=== PATIENT | male | born 1945 | race Caucasian/White ===

== ENCOUNTER 2018-08-15 05:51 | Day surgery (SDC) | payer MEDICARE, BC ==
[2018-08-14 12:16] LABS: BASOPHILS # (AUTO) 0.1 X10'3 (0-0.2); BASOPHILS % (AUTO) 0.8 % (0-1); EOSINOPHILS # (AUTO) 0.7 X10'3 (0-0.9); EOSINOPHILS % (AUTO) 10.6 % (0-6); HEMATOCRIT 43.9 % (42.0-52.0); HEMOGLOBIN 14.7 g/dl (14.0-17.9); LYMPHOCYTES % (AUTO) 15.6 % (21-51); MEAN CORPUSCULAR HGB CONC 33.5 g/dL (33.0-36.5); MEAN CORPUSCULAR VOLUME 92.5 FL (78-98); MEAN PLATELET VOLUME 9.2 FL (7.4-10.4); MONOCYTES # (AUTO) 0.4 X10'3 (0-0.9); MONOCYTES % (AUTO) 5.9 % (2-12); NEUTROPHILS # (AUTO) 4.1 X10'3 (1.8-7.7); NEUTROPHILS % (AUTO) 67.1 % (42-75); PLATELET COUNT 187 X10'3 (140-440); RED BLOOD COUNT 4.75 X10'6 (4.70-6.10); RED CELL DISTRIBUTION WIDTH 14.4 % (11.5-14.5); WHITE BLOOD COUNT 6.1 X10'3 (4.5-11.0)
[2018-08-14 12:23] LABS: ALBUMIN 3.3 G/DL (3.4-5.0); ANION GAP 8 (8-16); BLOOD UREA NITROGEN 20 MG/DL (7-18); BUN/CREATININE RATIO 21.3 (5.4-32.0); CALCIUM 9.2 MG/DL (8.5-10.1); CHLORIDE 109 MMOL/L (99-107); CREATININE 0.94 MG/DL (0.60-1.10); GLUCOSE 104 MG/DL (70-104); POTASSIUM 4.2 MMOL/L (3.5-5.1); SODIUM 140 MMOL/L (135-145); TOTAL CARBON DIOXIDE 23.5 MMOL/L (24-32); eGFR 79 ML/MIN
[2018-08-14 12:24] LABS: INR 1.1 INR; PROTHROMBIN TIME 10.7 SECONDS (9.0-12.0)
[2018-08-15] VITALS (15 sets, daily range): BP systolic 98–136; BP diastolic 59–94
[~2018-08-15] VITALS: Ht 188 cm; Wt 101.5 kg
[2018-08-15] MEDS ORDERED: MIDAZolam 5mg/ml 2ml vial IV ONE (06:10)
[2018-08-15] MEDS ORDERED: amiodarone in dextrose, iso-osm 150mg/100ml bag IV ONE (06:10)
[2018-08-15] MEDS ORDERED: morphine 10mg/ml inj. IV ONE (06:10)
[2018-08-15] MEDS ORDERED: normal saline 1000ml 1,000 ML IV SCH (06:10)
[2018-08-15] MEDS ORDERED: atropine 0.1mg/ml 10ml syringe IV ONE (06:10)
[2018-08-15] MEDS ORDERED: APIX5TAB3 PO (06:15)
[2018-08-15] MEDS ORDERED: DILT360T2 PO (06:15)
[2018-08-15] MEDS ORDERED: ATOR10TA87 PO (06:15)
[2018-08-15] MEDS ORDERED: RAMI5CAP65 PO (06:15)
[2018-08-15] MEDS ORDERED: FLO0.4C PO (06:15)
[2018-08-15] MEDS ORDERED: FLEC100T2 PO (06:15)
== END 2018-08-15 10:00 | disposition home or self-care (01) ==
LOC: SSTAY O 05:51
PROVIDERS: ATTEND Internal Medicine Cardiovascular Disease
DX: I48.0 Paroxysmal atrial fibrillation (principal); I10 Essential (primary) hypertension; E78.5 Hyperlipidemia, unspecified
CPT/HCPCS: 36415; 80048; 85025; 85610; 92960; 93005; J0282; J0461; J2250; J2270; J7030

== ENCOUNTER 2023-06-13 06:36 | Day surgery (SDC) | payer MEDICARE, BC ==
[2023-06-10 12:56] LABS: BASOPHILS % (AUTO) 0.7 % (0-1); EOSINOPHILS # (AUTO) 0.1 X10'3 (0-0.9); EOSINOPHILS % (AUTO) 1.9 % (0-6); HEMOGLOBIN 15.1 g/dl (14.0-17.9); LYMPHOCYTES # (AUTO) 1.4 X10'3 (1.1-4.8); LYMPHOCYTES % (AUTO) 24.2 % (21-51); MEAN CORPUSCULAR HEMOGLOBIN 30.7 PG (27.0-31.0); MEAN CORPUSCULAR HGB CONC 32.9 g/dL (33.0-36.5); MEAN CORPUSCULAR VOLUME 93.2 FL (78-98); MEAN PLATELET VOLUME 8.4 FL (7.4-10.4); MONOCYTES # (AUTO) 0.5 X10'3 (0-0.9); NEUTROPHILS # (AUTO) 3.8 X10'3 (1.8-7.7); NEUTROPHILS % (AUTO) 65.2 % (42-75); PLATELET COUNT 237 X10'3 (140-440); RED BLOOD COUNT 4.94 X10'6 (4.70-6.10); RED CELL DISTRIBUTION WIDTH 13.7 % (11.5-14.5); WHITE BLOOD COUNT 5.8 X10'3 (4.5-11.0)
[2023-06-10 12:58] LABS: ALBUMIN 3.5 G/DL (3.4-5.0); ANION GAP 7 (8-16); BLOOD UREA NITROGEN 28 MG/DL (7-18); BUN/CREATININE RATIO 26.4 (10.0-20.0); CALCIUM 9.1 MG/DL (8.5-10.1); CHLORIDE 106 MMOL/L (99-107); CREATININE 1.06 MG/DL (0.60-1.10); GLUCOSE 100 MG/DL (70-104); POTASSIUM 4.9 MMOL/L (3.5-5.1); SODIUM 139 MMOL/L (135-145); TOTAL CARBON DIOXIDE 26.3 MMOL/L (24-32); eGFR 68 ML/MIN
[~2023-06-13] VITALS: Ht 188 cm; Wt 100.0 kg
[~2023-06-13 06:36] MED LIST: APIX5TAB3 PO; ATOR10TA87 PO; DILT360T2 PO; FLEC100T2 PO; FLO0.4C PO; RAMI5CAP65 PO
[2023-06-13] MEDS ORDERED: amiodarone 150mg/dext, iso-os 100 ML IV ONE (06:50)
[2023-06-13] MEDS ORDERED: normal saline 1000ml 1,000 ML IV SCH (06:50)
[2023-06-13] MEDS ORDERED: diphenhydrAMINE 25mg capsule PO ONE (06:50)
[2023-06-13] MEDS ORDERED: MIDAZolam 1mg/ml 10ml vial IV ONE (06:50)
[2023-06-13] MEDS ORDERED: atropine 0.1mg/ml 10ml syringe IV ONE (06:50)
[2023-06-13] MEDS ORDERED: morphine 10mg/ml inj. IV ONE (06:50)
[2023-06-13] MEDS ORDERED: LORazepam 0.5 MG tablet PO ONE (06:50)
== END 2023-06-13 08:10 | disposition home or self-care (01) ==
LOC: SSTAY O 06:36
PROVIDERS: ATTEND Internal Medicine Cardiovascular Disease
DX: I48.0 Paroxysmal atrial fibrillation (principal); Z53.8 Procedure and treatment not carried out for other reasons; I47.10 Supraventricular tachycardia, unspecified; I49.5 Sick sinus syndrome; I08.1 Rheumatic disorders of both mitral and tricuspid valves; I10 Essential (primary) hypertension; E78.5 Hyperlipidemia, unspecified; N40.0 Benign prostatic hyperplasia without lower urinary tract symptoms; Z95.0 Presence of cardiac pacemaker; Z79.01 Long term (current) use of anticoagulants; Z79.899 Other long term (current) drug therapy; Z86.010 Personal history of colon polyps; Z87.891 Personal history of nicotine dependence; Z81.8 Family history of other mental and behavioral disorders; Z82.49 Family history of ischemic heart disease and other diseases of the circulatory system
CPT/HCPCS: 36415; 80048; 85025; 93005

== ENCOUNTER → 2025-01-16 | Day surgery (SDC) | payer MEDICARE, BC ==
[2025-01-15 12:54] LABS: MEAN PLATELET VOLUME 8.5 FL (7.4-10.4); RED CELL DISTRIBUTION WIDTH 14.2 % (11.5-14.5)
[2025-01-15 13:03] LABS: CREATININE 0.94 MG/DL (0.60-1.10); TOTAL CARBON DIOXIDE 28.9 MMOL/L (24-32); eGFR 77 ML/MIN
[2025-01-15 13:05] LABS: INR 1.1 INR
[~2025-01-16] VITALS: Ht 188 cm; Wt 98.2 kg
[~2025-01-16] MED LIST changes: -FLO0.4C PO; +MIDAZolam 1mg/ml 10ml vial IV ONE; -RAMI5CAP65 PO; +RAMI5CAP71 PO; +TAMS-55 PO; +amiodarone 150mg/dext, iso-os 100 ML IV ONE; +atropine 0.1mg/ml 10ml syringe IV ONE; +morphine 10mg/ml inj. IV ONE; +normal saline 1000ml 1,000 ML IV SCH
--- NOTE | 2025-01-16 06:43 | ELECTROCARDIOGRAPH REPORT ---
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 BRUNO Carney Measurements Intervals [place] Rate: 93 P: 0 W[place]: 0 QRS: 222 QRSD: 129 T: 31 QT: 446 QTc: 555 Interpretive Statements Atrial Fibrillation Nonspecific intraventricular conduction delay Anterior infarct, acute (LAD) Baseline wander in lead(s) V1 Electronically Signed On 01-16-2025 20:25:[address] BRUNO Carney Please click the below link to view image of tracing.
== END | disposition home or self-care (01) ==
LOC: SSTAY O 06:18
PROVIDERS: ATTEND Internal Medicine Cardiovascular Disease
DX: I48.92 Unspecified atrial flutter (principal); Z53.8 Procedure and treatment not carried out for other reasons; I48.0 Paroxysmal atrial fibrillation; I10 Essential (primary) hypertension; E78.5 Hyperlipidemia, unspecified; I25.2 Old myocardial infarction; Z86.0100 Personal history of colon polyps, unspecified; Z79.01 Long term (current) use of anticoagulants; Z79.899 Other long term (current) drug therapy; Z81.8 Family history of other mental and behavioral disorders; Z82.49 Family history of ischemic heart disease and other diseases of the circulatory system
CPT/HCPCS: 36415; 80048; 85025; 85610; 93005

== ENCOUNTER 2025-01-30 08:02 | Day surgery (SDC) | payer MEDICARE, BC ==
[2025-01-29 14:25] LABS: MEAN PLATELET VOLUME 8.2 FL (7.4-10.4); RED CELL DISTRIBUTION WIDTH 14.2 % (11.5-14.5)
[2025-01-29 14:38] LABS: INR 1.1 INR
[2025-01-29 14:42] LABS: CREATININE 1.06 MG/DL (0.60-1.10); TOTAL CARBON DIOXIDE 25.6 MMOL/L (24-32); eGFR 67 ML/MIN
[~2025-01-30] VITALS: Ht 188 cm; Wt 93.2 kg
[2025-01-30] MEDS: normal saline 1000ml 1,000 ML IV SCH (08:00)
[~2025-01-30 08:02] MED LIST changes: -MIDAZolam 1mg/ml 10ml vial IV ONE; -amiodarone 150mg/dext, iso-os 100 ML IV ONE; -atropine 0.1mg/ml 10ml syringe IV ONE; -morphine 10mg/ml inj. IV ONE; -normal saline 1000ml 1,000 ML IV SCH
[2025-01-30] MEDS ORDERED: atropine 0.1mg/ml 10ml syringe IV ONE (08:25)
[2025-01-30] MEDS ORDERED: amiodarone 150mg/dext, iso-os 100 ML IV ONE (08:25)
[2025-01-30] MEDS ORDERED: morphine 10mg/ml inj. IV ONE (08:25)
[2025-01-30] MEDS ORDERED: MIDAZolam 1mg/ml 10ml vial IV ONE (08:25)
--- NOTE | 2025-01-30 08:32 | ELECTROCARDIOGRAPH REPORT ---
[facility] Test Date: 2025-01-30 Test Time: 08:30:25 Pat Name: THERON MENDOZA Department: [facility] Room: Gender: M Import Specialist: JOEY : 1945 Requested By: TAWANA CARNEY Order Number: [id number] Reading MD: Dr. BRUNO Carney Measurements Intervals [place] Rate: 79 P: 0 MT: 0 QRS: 36 QRSD: 118 T: -70 QT: 390 QTc: 448 Interpretive Statements Atrial fibrillation Nonspecific intraventricular conduction delay Borderline T abnormalities, diffuse leads Electronically Signed On 01-30-2025 14:44:[address] BRUNO Carney Please click the below link to view image of tracing.
[2025-01-30] MEDS ORDERED: fentaNYL/PF 50MCG/1 ML 2ML syringe ONE (09:01)
[2025-01-30] MEDS ORDERED: midazolam 1 mg/ML 2ml injection ONE (09:01)
[2025-01-30 09:17] VITALS: RESP 15; O2SAT 97
[2025-01-30] MEDS ORDERED: atropine 0.1mg/ml 10ml syringe ONE (09:40)
[2025-01-30 10:05] VITALS: BP 105/67; PULSE 54; RESP 15; O2SAT 97
--- NOTE | 2025-01-30 10:10 | CARDIOLOGY REPORT ---
DATE OF SERVICE: 01/30/2025 DICTATING PHYSICIAN: BRUNO Bolivar MD ELECTRICAL CARDIOVERSION INDICATION: The patient is a 79-year-old male with history of hypertension, hyperlipidemia, paroxysmal atrial fibrillation, sick sinus syndrome. His additional comorbidities include colonic polyps and BPH. The patient's history of PAF dates back to 2018 when he was noted to have AFib during colonoscopy. He had electrical cardioversion on 08/15/2018 and at that time he was on flecainide and Cardizem. he was appeared to have still supraventricular arrhythmias when we lowered it to 50 b.i.d. Gradually it is increased to 100 b.i.d. The patient was noted to be in AFib on 12/31/2024. After discussing risks, benefits, and alternative options, the patient underwent electrical cardioversion. DESCRIPTION OF PROCEDURE: Risks, benefits, and alternative options discussed and informed consent was obtained. Anterior and posterior patches used. Biphasic at 200, converted to normal sinus rhythm. The patient's heart rate was in the 50s after conversion. IMPRESSION: A 79-year-old male with persistent atrial fibrillation converted to normal sinus rhythm. RECOMMENDATIONS: 1. Continue Eliquis 5 mg p.o. b.i.d., Cardizem CD 360 mg p.o. daily, flecainide 100 mg p.o. b.i.d. 2. Advantages of diet, weight loss and exercise were discussed with the patient. BRUNO Bolivar MD TID: [id number] RECEIPT: [id number] /[facility] cc: Ren Campbell MD [facility]
[2025-01-30 10:15] VITALS: BP 98/54; PULSE 52; RESP 16; O2SAT 94
--- NOTE | 2025-01-30 10:20 | ELECTROCARDIOGRAPH REPORT ---
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 BRUNO Carney Measurements Intervals [place] Rate: 57 P: 51 MS: 229 QRS: 44 QRSD: 126 T: 4 QT: 435 QTc: 424 Interpretive Statements Sinus rhythm Prolonged MS interval Nonspecific intraventricular conduction delay Nonspecific T abnormalities, lateral leads Electronically Signed On 01-30-2025 14:44:[address] BRUNO Carney Please click the below link to view image of tracing.
[2025-01-30 10:30] VITALS: BP 101/73; PULSE 52; RESP 15; O2SAT 95
== END 2025-01-30 10:45 | disposition home or self-care (01) ==
LOC: SSTAY O 08:02
PROVIDERS: ATTEND Internal Medicine Cardiovascular Disease
DX: I48.92 Unspecified atrial flutter (principal); R94.31 Abnormal electrocardiogram [ECG] [EKG]; I48.0 Paroxysmal atrial fibrillation; I10 Essential (primary) hypertension; E78.5 Hyperlipidemia, unspecified; Z79.01 Long term (current) use of anticoagulants; Z79.899 Other long term (current) drug therapy
CPT/HCPCS: 36415; 80048; 85025; 85610; 92960; 93005; 99152; J2250; J3010; J7030; Z7610; J0461